=== PATIENT | female | born 1955 | race American Indian/Alaskan Native ===

== ENCOUNTER 2018-06-21 09:49 | Outpatient (CLI) | payer MEDICARE ==
--- NOTE | 2018-06-21 14:15 | Ultrasound Report ---
TRANSABDOMINAL AND TRANSVAGINAL PELVIC ULTRASOUND: 06/21/18 09:49:00 CLINICAL: Large postmenopausal uterus. Calcified fibroids on the lumbar spine x-ray. FINDINGS: Transabdominal and transvaginal pelvic ultrasound demonstrated an enlarged retroflexed fibroid uterus measuring 11.6 x 4.0 x 6.3 cm. The largest fibroid is located anterior fundal subserosal and measures 3.3 x 2.9 x 2.9 cm. An anterior lower uterine segment subserosal fibroid measures 2.4 x 2.1 x 2.7 cm. Additional anterior intramural fibroids measure 2.9 x 2.6 x 2.5 cm and 2.0 x 1.8 x 1.6 cm. A submucosal anterior body fibroid measures 1.8 x 1.7 x 1.8 cm.The endometrium minimally thickened and measures 4.6 mm AP thickness. Ovaries are not identified. No adnexal mass. No free fluid. Normal urinary bladder. IMPRESSION: 1. An enlarged retroflexed fibroid uterus. 2. The largest fibroid measures 3.3 cm. 3. Normal endometrium. 4. Ovaries not identified. 5. No mass.
== END 2018-06-21 09:50 | disposition home or self-care (01) ==
LOC: SPVWC 09:49
PROVIDERS: ATTEND Internal Medicine
DX: D25.2 Subserosal leiomyoma of uterus (principal)
CPT/HCPCS: 76830; 76856